=== PATIENT | female | born 1995 | race Caucasian/White ===

== ENCOUNTER → 2018-01-03 14:46 | Outpatient (CLI) | payer BC ==
[2018-01-03 15:12] LABS: BASOPHILS 0.3 % (0-2); EOSINOPHILS 0.6 % (0-7); HEMATOCRIT 40.4 % (36.0-48.0); HEMOGLOBIN 13.9 g/dL (12-16); IMMATURE GRANULOCYTES 0.1 % (0-5); LYMPHOCYTES 35.6 % (15-50); MCH 30.6 pg (26.0-34.0); MCHC 34.4 g/dL (31.0-37.0); MEAN PLATELET VOLUME 10.3 fL (7.4-10.4); MONOCYTES 5.8 % (2-11); NEUTROPHILS 57.6 % (40-80); PLATELET COUNT 235 10x3/uL (130-400); RBC 4.54 10x6/uL (4.00-5.40); RDW 12.3 % (11.5-14.5); WBC 6.9 10x3/uL (4.8-10.8)
[2018-01-04 13:17] LABS: EBV - EARLY ANTIGEN AB IGG 30.6 U/mL (0.0-8.9); EBV VIRAL CAPSID AB IGM <36.0 U/mL (0.0-35.9)
[2018-01-05 12:18] LABS: BARTONELLA - HENSELAE IGG Negative titer (Neg:<1:320); BARTONELLA - HENSELAE IGM Negative titer (Neg:<1:100); BARTONELLA - QUINTANA IGG Negative titer (Neg:<1:320); BARTONELLA - QUINTANA IGM Negative titer (Neg:<1:100)
== END | disposition home or self-care (01) ==
LOC: D.LAB 14:46
PROVIDERS: Otolaryngology
DX: R59.0 Localized enlarged lymph nodes (principal)